=== PATIENT | male | born 1950 | race Caucasian/White ===

== ENCOUNTER 2017-08-11 20:30 | Inpatient (IN) | payer MEDICARE ==
[~2017-08-11] VITALS: Ht 162.6 cm; Wt 62.7 kg
[2017-08-12 00:05] VITALS: BP 123/79; PULSE 83; RESP 18; TEMP 97.6; O2SAT 97
[2017-08-12] MEDS ORDERED: LORazepam 2 MG/ML VIAL IV PUSH PRN ×4 (00:30)
[2017-08-12] MEDS ORDERED: LORazepam 2 MG TAB PO PRN (00:30)
[2017-08-12] MEDS ORDERED: LORazepam 1 MG TAB PO PRN (00:30)
[2017-08-12] MEDS ORDERED: FLUMAZENIL 0.5 MG/5 ML VIAL IV PUSH PRN (00:30)
[2017-08-12] MEDS ORDERED: diphenhydrAMINE HCL 50 MG/ML VIAL IM PRN (00:45)
[2017-08-12] MEDS ORDERED: hydrOXYzine HCL 50 MG TAB PO PRN (00:45)
[2017-08-12] MEDS ORDERED: ALUMINUM/MAGNESIUM/SIMETH 30 ML CUP PO PRN (00:45)
[2017-08-12] MEDS ORDERED: diphenhydrAMINE HCL 50 MG CAP - HS PRN PO (00:45)
[2017-08-12] MEDS ORDERED: diphenhydrAMINE HCL 50 MG/ML VIAL - HS PRN IM (00:45)
[2017-08-12] MEDS ORDERED: MAGNESIUM HYDROXIDE SUSP 30 ML CUP PO PRN (00:45)
[2017-08-12] MEDS ORDERED: diphenhydrAMINE HCL 50 MG CAP PO PRN (00:45)
[2017-08-12] MEDS ORDERED: ACETAMINOPHEN 325 MG TAB PO PRN (00:45)
[2017-08-12] MEDS ORDERED: NICOTINE 21 MG/24 HR PATCH T-DERMAL SCH (09:00)
--- NOTE | 2017-08-12 13:02 | HHI.DS ---
Psychiatry Discharge Summary Advance Directive: No Reason Not Provided: REFUSED Admission Admission Date August 12, 2017 at 00:05 Admission Diagnosis: Tobacco Use In Past 30 Days: No Tobacco Past 30 Days Alcohol Use: Never Results Blood Pressure 123 / 79 Vital Signs Date Time Temp Pulse Resp B/P (MAP) Pulse Ox O2 Delivery O2 Flow Rate FiO2 08/12/17 00:05 97.6 83 18 123/79 (94) 97 Medications Approp Antipsych med options 1 - Minimum of three failed multiple trials of monotherapy. 2 - Documented plan to taper to monotherapy due to previous use of multiple meds OR cross-taper in progress at D/C. 3 - Documentation of augmentation of Clozapine. 4 - Justification other than those listed in allowable values 1-3, document here : Discharge Pt Condition on Discharge: Fair Discharge Disposition: Discharge Home Discharge Instructions Diet Instructions: Heart Healthy Diet Activities you can perform: Weight Bearing as Ayanna Scheduled Appointment: [facility] Appointment Date: August 13, 2017 Discharge/Advance Care Plan Goals to promote your health * To prevent worsening of your condition and complications * To maintain your health at the optimal level Directions to meet your goals Take your medications as prescribed Follow your dietary instruction Follow activity as directed Keep your appointments as scheduled Take your immunizations and boosters as scheduled If your symptoms worsen call your PCP, if no PCP go to Urgent Care Center or Emergency Room For 26/10 questions related to your inpatient stay or results of tests pending at discharge, please contact Dr. Hugo Smith at Smoking is Dangerous to Your Health. Avoid second hand smoking Hugo Smith MD August 12, 2017 13:02
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
[2017-08-12] MEDS ORDERED: REMOVE OLD NICOTINE PATCH T-DERMAL SCH (21:00)
== END 2017-08-12 14:50 | disposition home or self-care (01) | DRG 882 ==
LOC: H270 08-12 00:05
PROVIDERS: ADMIT Psychiatry & Neurology Psychiatry; ATTEND Psychiatry & Neurology Psychiatry
DX: F43.25 Adjustment disorder with mixed disturbance of emotions and conduct (principal); I50.9 Heart failure, unspecified; F31.9 Bipolar disorder, unspecified; I25.10 Atherosclerotic heart disease of native coronary artery without angina pectoris; Z91.410 Personal history of adult physical and sexual abuse; Z81.8 Family history of other mental and behavioral disorders